=== PATIENT | female | born 1970 | race Caucasian/White ===

== ENCOUNTER 2023-01-18 07:27 | Day surgery (SDC) | payer OTHER ==
[~2023-01-18] VITALS: Ht 154.9 cm; Wt 56.7 kg
[2023-01-18] MEDS ORDERED: fentaNYL citrate 0.05 MG/ML VIAL ONE (08:15)
[2023-01-18] MEDS ORDERED: LIDOCAINE 2% 100 MG/5 ML UJET TP ONE (08:16)
[2023-01-18] MEDS ORDERED: MIDAZOLAM 5 MG/5 ML VIAL ONE (08:16)
[2023-01-18] MEDS ORDERED: diphenhydrAMINE 50 MG/ML VIAL ONE (08:23)
[2023-01-18] MEDS ORDERED: MIDAZOLAM 2 MG/2 ML VIAL IVP ONE (09:05)
[2023-01-18] MEDS ORDERED: fentaNYL citrate 0.05 MG/ML VIAL IVP ONE (09:05)
== END 2023-01-18 09:30 | disposition home or self-care (01) ==
LOC: MDS 07:27 → MMU 07:28 → MDS 09:30
PROVIDERS: ATTEND Internal Medicine Gastroenterology
DX: Z12.11 Encounter for screening for malignant neoplasm of colon (principal); K63.5 Polyp of colon
CPT/HCPCS: 45385; J2250; J3010; 88305; J1200